=== PATIENT | male | born 1980 | race Caucasian/White ===

== ENCOUNTER 2018-05-13 04:03 | Emergency (ER) | payer SELFPAY ==
[2018-05-13] MEDS ORDERED: Sodium Chloride 0.9% 1,000 ML IV ONE (04:21)
--- NOTE | 2018-05-13 04:23 | C.PDOC ---
History Of Present Illness <Cyrus Briseno R - Last Filed: 05/13/18 06:41> <Conrad Westbrook - Last Filed: 05/13/18 11:45> 38 year old male presents to the ED c/o sudden onset epigastric abdominal pain that started this afternoon. Patient also states feeling nausea. Patient denies fever, chills, vomit, diarrhea, dysuria, hematuria, weakness, numbness. (Cyrus Briseno) History Per: Patient History/Exam Limitations: no limitations Onset/Duration Of Symptoms: Days Current Symptoms Are (Timing): Still Present Severity: Mild Location Of Pain/Discomfort: Epigastric Radiation Of Pain To:: None Quality Of Discomfort: "Pain" Associated Symptoms: Nausea. denies: Vomiting, Diarrhea, Urinary Symptoms Recent travel outside of the [place]: No Additional History Per: Patient <Cyrus Briseno - Last Filed: 05/13/18 06:41> <Conrad Westbrook - Last Filed: 05/13/18 11:45> Chief Complaint (Nursing): Abdominal Pain Past Medical History Reviewed: Historical Data, Nursing Documentation, Vital Signs - Medical History PMH: HTN Surgical History: No Surg Hx Family History: States: Unknown Family Hx - Social History Hx Alcohol Use: No Hx Substance Use: No - Immunization History Hx Tetanus Toxoid Vaccination: No Hx Influenza Vaccination: No Hx Pneumococcal Vaccination: No <Cyrus Briseno - Last Filed: 05/13/18 06:41> Vital Signs: Last Vital Signs Temp 98.4 F 05/13/18 11:17 Pulse 55 L 05/13/18 11:17 Resp 16 05/13/18 11:17 BP 129/79 05/13/18 11:17 Pulse Ox 98 05/13/18 11:17 Review Of Systems Constitutional: Negative for: Fever, Chills Cardiovascular: Negative for: Chest Pain Respiratory: Negative for: Cough, Shortness of Breath Gastrointestinal: Positive for: Nausea, Abdominal Pain. Negative for: Vomiting , Diarrhea Skin: Negative for: Rash Neurological: Negative for: Weakness, Numbness <Cyrus Briseno - Last Filed: 05/13/18 06:41> Physical Exam - Physical Exam Appears: Non-toxic, In Acute Distress Skin: Normal Color, Warm, Dry Head: Atraumatic, Normacephalic Eye(s): bilateral: Normal Inspection Oral Mucosa: Moist Neck: Normal ROM, Supple Chest: Symmetrical Cardiovascular: Rhythm Regular Respiratory: Normal Breath Sounds, No Rales, No Rhonchi, No Wheezing Gastrointestinal/Abdominal: Soft, Tenderness (epigastric, RUQ), No Guarding, No Rebound Back: Normal Inspection Extremity: Normal ROM, No Tenderness, No Swelling Neurological/Psych: Oriented x3, Normal Speech Gait: Steady <Cyrus Briseno - Last Filed: 05/13/18 06:41> ED Course And Treatment - Laboratory Results Result Diagrams: 05/13/18 04:33 05/13/18 04:33 O2 Sat by Pulse Oximetry: 98 (ON RA) Pulse Ox Interpretation: Normal <Cyrus Briseno - Last Filed: 05/13/18 06:41> - Laboratory Results Result Diagrams: 05/13/18 04:33 05/13/18 04:33 <Conrad Westbrook - Last Filed: 05/13/18 11:45> Medical Decision Making <Cyrus Briseno - Last Filed: 05/13/18 06:41> <Conrad Westbrook - Last Filed: 05/13/18 11:45> Medical Decision Making: Plan: * Labs * bentyl 20 mg IM * pepcid 20 mg IVP * IV fluids * UA * US abdomen (Cyrus Briseno) Signed out to me at change of shift pending US. US showed mild GB wall thickening. Surgery consulted, CT ordered, which shows enteritis. See Sx note. Discharged home, f/u primary care, return to ED for worsening pain, fever, vomiting, dyspnea, or any other problem. (Conrad Westbrook) Disposition <Cyrus Briseno - Last Filed: 05/13/18 06:41> - Disposition Disposition Time: 07:41 <Conrad Westbrook - Last Filed: 05/13/18 11:45> - Disposition Referrals: [facility] at [facility] [Outside] Disposition: HOME/ ROUTINE Condition: STABLE Additional Instructions: FINDINGS: LOWER THORAX: Unremarkable. LIVER: Moderate hepatic steatosis is noted. No evidence of discrete mass or acute pathology. The portal vein is patent. GALLBLADDER AND BILE DUCTS: Unremarkable. PANCREAS: Unremarkable. No gross lesion or ductal dilatation. SPLEEN: Unremarkable. ADRENALS: Unremarkable. No mass. KIDNEYS AND URETERS: There is low-attenuation cyst exophytic from the midpole right kidney measures 2.7 centimeter in the transverse diameter. No evidence of hydronephrosis or hydroureter. The kidneys enhance symmetrically. There is 1.6 x 1.4 centimeter enhancing lesion at the mid to lower pole of the left kidney of uncertain etiology. The possibility of neoplasm is not totally excluded. VASCULATURE: Unremarkable. No aortic aneurysm. BOWEL: Mildly dilated small bowel loops at the mid and lower abdomen demonstrate mild wall thickening suspicious for enteritis. No evidence of high-grade bowel obstruction. No CT evidence of acute pathology in the large bowel noted in this study. APPENDIX: No evidence of appendicitis. PERITONEUM: Unremarkable. No free fluid. No free air. LYMPH NODES: Unremarkable. No enlarged lymph nodes. BLADDER: Unremarkable. REPRODUCTIVE: Prostate is mildly enlarged. BONES: No acute fracture. OTHER FINDINGS: None. IMPRESSION: 1.6 centimeter enhancing heterogeneous mass at the mid to lower pole of the left kidney. Non emergent further evaluation by other modalities such as ultrasound or MRI is recommended. Mildly dilated small bowel loops demonstrate mild wall thickening suspicious for enteritis. Hepatic steatosis. Prescriptions: levoFLOXacin [Levaquin] 1 tab PO DAILY #10 tab Metronidazole [Flagyl] 500 mg PO Q8 #30 tab Ondansetron ODT [Zofran ODT] 4 mg PO Q8 #12 odt Instructions: Viral Gastroenteritis Forms: [facility] [facility] (Lithuanian) - Clinical Impression Clinical Impression: Enteritis - Scribe Statement The provider has reviewed the documentation as recorded by the Scribe <Cyrus Briseno - Last Filed: 05/13/18 06:41> <Conrad Westbrook - Last Filed: 05/13/18 11:45> - Scribe Statement Aubrey Pa All medical record entries made by the Scribe were at my direction and personally dictated by me. I have reviewed the chart and agree that the record accurately reflects my personal performance of the history, physical exam, medical decision making, and the department course for this patient. I have also personally directed, reviewed, and agree with the discharge instructions and disposition. (Cyrus Briseno)
[2018-05-13 04:37] LABS: BASO % 0.5 % (0.0-2.0); EOS # 0.2 K/uL (0.0-0.7); EOS % 2.6 % (0.0-4.0); HEMOGLOBIN 14.9 g/dL (12.0-18.0); LYMPH # 2.6 K/uL (1.0-4.3); MEAN CELL VOLUME 85.1 fL (80.0-94.0); MEAN CORPUSCULAR HEMOGLOBIN 29.6 pg (27.0-31.0); MEAN CORPUSCULAR HGB CONC 34.8 g/dL (33.0-37.0); MEAN PLATELET VOLUME 8.5 fL (7.2-11.7); MONO # 0.4 K/uL (0.0-0.8); MONO % 6.4 % (0.0-10.0); NEUT # 3.3 K/uL (1.8-7.0); NEUT % 50.5 % (50.0-75.0); NRBC % 0.1 % (0.0-2.0); RBC 5.04 Mil/uL (4.40-5.90); WHITE BLOOD COUNT 6.4 K/uL (4.8-10.8)
[2018-05-13 04:38] LABS: URINE BILIRUBIN NEGATIVE (NEGATIVE); URINE BLOOD NEGATIVE (NEGATIVE); URINE CLARITY Clear (Clear); URINE COLOR Yellow (YELLOW); URINE GLUCOSE (UA) 3+ mg/dL (Normal); URINE LEUKOCYTE ESTERASE NEG Leu/uL (Negative); URINE PROTEIN 2+ mg/dL (NEGATIVE); URINE UROBILINOGEN NORMAL mg/dL (0.2-1.0)
[2018-05-13 04:48] LABS: ALB/GLOB RATIO 1.6 (1.0-2.1); ALBUMIN 4.3 g/dL (3.5-5.0); ALT/SGPT 66 U/L (21-72); AST/SGOT 24 U/L (17-59); BLOOD UREA NITROGEN 13 mg/dL (9-20); CALCIUM 8.8 mg/dl (8.6-10.4); GFR AFRICAN-AMERICAN > 60; GFR NON-AFRICAN AMERICAN > 60; LIPASE 80 U/L (23-300)
--- NOTE | 2018-05-13 08:48 | CP.PCM.CON ---
History of Present Illness - History of Present Illness History of Present Illness: General Surgery Consult Note for Dr. Tejada Mr. Francis is a Bulgarian speaking 38 year old male coming to the ED for diffuse abdominal pain x1 day. The pain started yesterday around 5 pm while at work, burning in nature, comes and goes, 7/10 in severity, doesn't radiate, worse with walking and eating. Patient states this has never happened before. He reports 5 episodes of NBNB vomiting and watery diarrhea prior to ED. Has not vomited in the ED and is having more formed BM although still at increased frequency. He last ate chicken and rice at 1:30pm and eggs at 6pm, which is his normal diet. Admits chills, diaphoresis, dizziness, weight loss of 10 lbs over 4 months, decreased appetite. He denies sick contact, recent travel fever, SMALL, sore throat, dysphasia, CP, palpitation, SOB, cough, hematemsis, hematochezia, dysuria. PMHx: DM2 PSHx: heart surgery unspecified (cyst) 2011 Med: unknown All: NKA SH: denies tobacco, ETOH, illicit drugs. 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 absent: Fever, Headache, Increased Appetite - EENT Eyes: absent: Dry Eye Ears: absent: Decreased Hearing Nose/Mouth/Throat: absent: Nasal Congestion, Nasal Discharge, Dry Mouth, Dysphagia - Cardiovascular Cardiovascular: Diaphoresis. absent: Chest Pain, Palpitations - Respiratory Respiratory: absent: Cough, Dyspnea, Hemoptysis - Gastrointestinal Gastrointestinal: Change in Bowel Habits, Change in Stool Character, Diarrhea, Loose Stools, Vomiting. absent: Abdominal Pain (diffuse abd. pain with +ve sinclair's sign. -ve Mcburrny, obturator and Rovsing.), Coffee Ground Emesis, Constipation, Cramping, Dysphagia, Hematemesis, Hematochezia - Genitourinary Genitourinary: absent: Dysuria - Neurological Neurological: absent: Dizziness Past Patient History - Infectious Disease Hx of Infectious Diseases: None - Past Social History Smoking Status: Never Smoked Alcohol: None Drugs: Denies - CARDIAC Hx Hypertension: Yes - ENDOCRINE/METABOLIC Hx Diabetes Mellitus Type 2: Yes - PSYCHIATRIC Hx Substance Use: No - SURGICAL HISTORY Hx Surgeries: No - ANESTHESIA Hx Anesthesia: No Meds Allergies/Adverse Reactions: Allergies Allergy/AdvReac Type Severity Reaction Status Date / Time No Known Allergies Allergy Verified 05/13/18 04:15 - Medications Medications: Current Medications Sodium Chloride (Sodium Chloride 0.9%) 1,000 mls @ 100 mls/hr IV .Q10H ONE Stop: 05/13/18 14:20 Last Admin: 05/13/18 04:30 Dose: 100 mls/hr Physical Exam - Constitutional Appears: Non-toxic, No Acute Distress - Head Exam Head Exam: ATRAUMATIC, NORMAL INSPECTION, NORMOCEPHALIC - Eye Exam Eye Exam: EOMI, Normal appearance - ENT Exam ENT Exam: Mucous Membranes Moist, Normal Exam - Respiratory Exam Respiratory Exam: Clear to Auscultation Bilateral, NORMAL BREATHING PATTERN. absent: Rales, Rhonchi, Wheezes, Respiratory Distress - Cardiovascular Exam Cardiovascular Exam: REGULAR RHYTHM, RRR, +S1, +S2. absent: Systolic Murmur - GI/Abdominal Exam GI & Abdominal Exam: Normal Bowel Sounds, Soft, Tenderness (Diffuse abd. pain, + ve Sinclair's sign. -ve Mcburrny, Rovsing and obturator). absent: Distended, Firm , Guarding, Mass, Organomegaly, Pulsatile Mass, Rebound, Rigid Additional comments: Diffuse abdominal tenderness to superficial and deep palpation, worst RUQ. neg Sinclair's sign. neg McBurney, Rovsing and Obturator signs - Neurological Exam Neurological exam: Alert, Oriented x3 - Psychiatric Exam Psychiatric exam: Normal Affect, Normal Mood - Skin Skin Exam: Intact, Normal Color, Warm Results - Vital Signs Recent Vital Signs: Last Vital Signs Temp 97.2 F L 05/13/18 06:49 Pulse 72 05/13/18 06:49 Resp 20 05/13/18 06:49 BP 142/70 05/13/18 06:49 Pulse Ox 98 05/13/18 06:49 - Labs Result Diagrams: 05/13/18 04:33 05/13/18 04:33 Labs: Laboratory Results - last 24 hr 05/13/18 05/13/18 05/13/18 04:33 04:33 04:33 WBC 6.4 RBC 5.04 Hgb 14.9 Hct 42.9 MCV 85.1 MCH 29.6 MCHC 34.8 RDW 13.0 Plt Count 193 MPV 8.5 Neut % (Auto) 50.5 Lymph % (Auto) 40.0 [place] % (Auto) 6.4 Eos % (Auto) 2.6 Baso % (Auto) 0.5 Neut # (Auto) 3.3 Lymph # (Auto) 2.6 [place] # (Auto) 0.4 Eos # (Auto) 0.2 Baso # (Auto) 0.0 Sodium 139 Potassium 4.2 Chloride 104 Carbon Dioxide 22 Anion Gap 16 BUN 13 Creatinine 0.7 L Est GFR ( Amer) > 60 Est GFR (Non-Af Amer) > 60 Random Glucose 231 H Calcium 8.8 Total Bilirubin 0.5 AST 24 ALT 66 Alkaline Phosphatase 149 H Total Protein 7.1 Albumin 4.3 Globulin 2.8 Albumin/Globulin Ratio 1.6 Lipase 80 Urine Color Yellow Urine Clarity Clear Urine pH 5.0 Ur Specific Draper 1.021 Urine Protein 2+ H Urine Glucose (UA) 3+ H Urine Ketones Negative Urine Blood Negative Urine Nitrate Negative Urine Bilirubin Negative Urine Urobilinogen Normal Ur Leukocyte Esterase Neg Urine WBC (Auto) < 1 Urine RBC (Auto) < 1 Assessment & Plan - Assessment and Plan (Free Text) Assessment: 38yoM with abdominal pain r/o cholecystitis vs. gastroenteritis Plan: - US appreciated: no acute cholecystitis - CT appreciated: probable enteritis - vomiting, diarrhea improving - pain improving - cont IVF - no surgical intervention at this time - d/w Dr. Terrell Hernandez PGY1 - Date & Time Date: 05/13/18 Time: 08:46
--- NOTE | 2018-05-13 09:33 | US ---
Date of service: 05/13/2018 HISTORY: RUQ/ epigastric pain and tenderness COMPARISON: None. TECHNIQUE: Grayscale imaging was performed. FINDINGS: LIVER: Measures 16.1 cm in length. There is diffuse increased echogenicity of the liver parenchyma. No mass. No intrahepatic bile duct dilatation. GALLBLADDER: There are no gallstones, there is mild gallbladder wall thickening without pericholecystic fluid. The sonographic Sinclair's sign is negative. COMMON BILE DUCT: Measures 3.5 mm. No stones. No dilatation. PANCREAS: Unremarkable as visualized. No mass. No ductal dilatation. RIGHT KIDNEY: Measures 10.8 cm in length. Normal echogenicity. No calculus, mass, or hydronephrosis. There is a 2.6 cm simple cyst in the lower pole. AORTA: No aneurysmal dilatation. IVC: Unremarkable. OTHER FINDINGS: None . IMPRESSION: No cholelithiasis or biliary dilatation. Diffuse increased echogenicity in the liver may reflect hepatic steatosis however parenchymal infectious/ inflammatory etiologies cannot be entirely excluded. Clinical and laboratory correlation is advised. A preliminary report was provided by [facility].
[2018-05-13 11:18] VITALS: BP 129/79; PULSE 55; RESP 16; TEMP 98.4; O2SAT 98
--- NOTE | 2018-05-13 11:33 | CT ---
Date of service: 05/13/2018 PROCEDURE: CT Abdomen and Pelvis with contrast HISTORY: abd pain COMPARISON: Comparison is made with the previous same-day ultrasound of the abdomen. TECHNIQUE: Contrast dose: 100 mL Visipaque 320. Axial and reformatted coronal and sagittal CT images of the abdomen and pelvis were obtained after IV contrast administration. Radiation dose: Total exam DLP = 455.17 mGy-cm. This CT exam was performed using one or more of the following dose reduction techniques: Automated exposure control, adjustment of the mA and/or kV according to patient size, and/or use of iterative reconstruction technique. FINDINGS: LOWER THORAX: Unremarkable. LIVER: Moderate hepatic steatosis is noted. No evidence of discrete mass or acute pathology. The portal vein is patent. GALLBLADDER AND BILE DUCTS: Unremarkable. PANCREAS: Unremarkable. No gross lesion or ductal dilatation. SPLEEN: Unremarkable. ADRENALS: Unremarkable. No mass. KIDNEYS AND URETERS: There is low-attenuation cyst exophytic from the midpole right kidney measures 2.7 centimeter in the transverse diameter. No evidence of hydronephrosis or hydroureter. The kidneys enhance symmetrically. There is 1.6 x 1.4 centimeter enhancing lesion at the mid to lower pole of the left kidney of uncertain etiology. The possibility of neoplasm is not totally excluded. VASCULATURE: Unremarkable. No aortic aneurysm. BOWEL: Mildly dilated small bowel loops at the mid and lower abdomen demonstrate mild wall thickening suspicious for enteritis. No evidence of high-grade bowel obstruction. No CT evidence of acute pathology in the large bowel noted in this study. APPENDIX: No evidence of appendicitis. PERITONEUM: Unremarkable. No free fluid. No free air. LYMPH NODES: Unremarkable. No enlarged lymph nodes. BLADDER: Unremarkable. REPRODUCTIVE: Prostate is mildly enlarged. BONES: No acute fracture. OTHER FINDINGS: None. IMPRESSION: 1.6 centimeter enhancing heterogeneous mass at the mid to lower pole of the left kidney. Non emergent further evaluation by other modalities such as ultrasound or MRI is recommended. Mildly dilated small bowel loops demonstrate mild wall thickening suspicious for enteritis. Hepatic steatosis.
== END 2018-05-13 12:02 | disposition home or self-care (01) ==
LOC: C.ER 04:03
DX: K52.9 Noninfective gastroenteritis and colitis, unspecified (principal); I10 Essential (primary) hypertension
CPT/HCPCS: 74177; 76705; 80053; 81001; 83690; 85025; 96372; 96374; 99285; J0500; J7030